=== PATIENT | female | born 1945 | race Asian ===

== ENCOUNTER 2016-05-10 20:38 | Emergency (ER) | payer OTHER, MEDICAID ==
[~2016-05-10] VITALS: Ht 149.9 cm; Wt 64.9 kg
[2016-05-10 20:40] VITALS: BP 143/76; PULSE 75; RESP 20; TEMP 97.8; O2SAT 95
--- NOTE | 2016-05-10 20:40 | NUR ---
Patient to ER bed 1 to gown for evaluation. Side rails up. Report given to Horace PEARL.
--- NOTE | 2016-05-10 20:45 | NUR ---
PT IS AOX4, C/O PALPITATION X 2 DAYS. PT STATED THAT HER HEART BEATS FASTER THAN YESTERDAY AT ER HR IS 75 AND PT NOT IN CP DISTRESS AND DENIES ANY PAIN.
--- NOTE | 2016-05-10 20:46 | NUR ---
ER at bedside examining patient.
[2016-05-10] MEDS ORDERED: NACL 0.9% 1,000 ML IV ONE (20:54)
[2016-05-10] MEDS ORDERED: ASPIRIN 81 MG TAB.CHEW PO ONE (21:00)
[2016-05-10 21:18] LABS: BASOPHILS # (AUTO) 0.1 K/uL (0.0-0.2); BASOPHILS % (AUTO) 0.4 % (0.0-2.0); EOSINOPHILS # (AUTO) 0.2 K/uL (0.0-0.4); EOSINOPHILS % (AUTO) 1.1 % (0.0-4.0); HEMATOCRIT 40.7 % (36-48); HEMOGLOBIN 13.9 g/dL (12.0-16.0); LYMPHOCYTES # (AUTO) 2.8 K/uL (1.0-5.5); LYMPHOCYTES % (AUTO) 19.1 % (20.5-51.5); MEAN CORPUSCULAR HEMOGLOBIN 30 pg (27-31); MEAN CORPUSCULAR HGB CONC 34 % (32-36); MEAN CORPUSCULAR VOLUME 87 fL (79.0-98.0); MONOCYTES % (AUTO) 6.6 % (1.7-9.3); NEUTROPHILS # (AUTO) 10.4 K/uL (1.8-7.7); NEUTROPHILS % (AUTO) 72.8 % (40.0-70.0); PLATELET COUNT (AUTO) 362 K/uL (130-430); RED BLOOD CELL COUNT(AUTO) 4.68 MIL/uL (4.2-6.2); RED CELL DISTRIBUTION WIDTH 13.3 % (9.0-15.0); WHITE BLOOD COUNT (AUTO) 14.5 K/uL (4.8-10.8)
[2016-05-10 21:23] LABS: ANION GAP 8 (5-15); CALCIUM 9.2 mg/dL (8.4-11.0); CHLORIDE 103 mmol/L (98-107); CREATININE 0.79 mg/dL (0.55-1.30); GLUCOSE 139 mg/dL (70-99); POTASSIUM 3.7 mmol/L (3.5-5.1); SODIUM SERUM 140 mmol/L (136-145); UREA NITROGEN, BLOOD 20 mg/dL (8-21)
[2016-05-10 21:25] LABS: INR 0.9 (0.8-1.2); PROTHROMBIN TIME 9.7 SECS (9.5-12.5)
[2016-05-10 21:36] LABS: ALANINE AMINOTRANSFERASE 19 U/L (12-78); ASPARTATE AMINOTRANSFERASE 16 U/L (10-37); TOTAL BILIRUBIN 0.3 mg/dL (0.0-1.0); TOTAL PROTEIN, SERUM 7.4 g/dL (6.4-8.3)
[2016-05-10 21:37] LABS: ALBUMIN 3.7 g/dL (3.4-4.8)
[2016-05-10 23:00] VITALS: BP 127/75; PULSE 72; RESP 20; TEMP 97.8; O2SAT 98
--- NOTE | 2016-05-10 23:00 | NUR ---
Patient given written and verbal discharge instructions and verbalizes understanding. ER MD discussed with patient the results and treatment provided. Patient in stable condition. ID arm band removed. NO Rx of given. Patient educated on pain management and to follow up with PMD. Pain Scale 0/10. Opportunity for questions provided and answered.
== END 2016-05-10 23:00 | disposition home or self-care (01) ==
LOC: SED 20:38
DX: R00.2 Palpitations (principal)
CPT/HCPCS: 36415; 80053; 84484; 85025; 85610; 85730; 93005; 96360; 96361; 99285; J7030